=== PATIENT | male | born 1975 | race Hispanic/Latino ===

== ENCOUNTER 2018-10-25 20:45 | Emergency (ER) | payer SELFPAY | END 2018-10-25 21:17 | disposition home or self-care (01) | LOC: NAV ERS 20:45 | DX: R21 Rash and other nonspecific skin eruption (principal); F17.210 Nicotine dependence, cigarettes, uncomplicated | CPT/HCPCS: 99282 ==

== ENCOUNTER 2018-12-09 20:09 | Emergency (ER) | payer SELFPAY ==
[2018-12-09] MEDS ORDERED: methylPREDNISolone Acetate 40 mg/ml Vial ONE (20:22)
== END 2018-12-09 20:51 | disposition home or self-care (01) ==
LOC: NAV ERS 20:09
DX: L23.7 Allergic contact dermatitis due to plants, except food (principal); F17.210 Nicotine dependence, cigarettes, uncomplicated
CPT/HCPCS: 96372; J1030

== ENCOUNTER 2019-09-22 18:47 | Emergency (ER) | payer SELFPAY ==
[2019-09-22] MEDS ORDERED: predniSONE 20 MG TAB ONE (19:22)
== END 2019-09-22 19:25 | disposition home or self-care (01) ==
LOC: NAV ERS 18:47
DX: L50.0 Allergic urticaria (principal); L25.9 Unspecified contact dermatitis, unspecified cause; F17.210 Nicotine dependence, cigarettes, uncomplicated
CPT/HCPCS: 99282; J7512

== ENCOUNTER 2020-07-18 15:25 | Emergency (ER) | payer SELFPAY ==
--- NOTE | 2020-07-18 15:48 | RAD ---
XR Knee Rt 4 View STANDARD History: Injury Comparison: None. Findings: Mild prepatellar soft tissue swelling. Ovoid 1 x 2 mm radiopacity projects over the suprapa tellar soft tissues likely within the superficial soft tissues and may be a small phlebolith versus mild quadriceps calcific tendinosis. No acute displaced fracture or malalignment. Likely old MCL injury at the tibial insertion. Impression: No acute osseous abnormality.
== END 2020-07-18 16:03 | disposition home or self-care (01) ==
LOC: NAV ERS 15:25
DX: M25.561 Pain in right knee (principal); F17.210 Nicotine dependence, cigarettes, uncomplicated; W17.2XXA Fall into hole, initial encounter

== ENCOUNTER 2022-04-26 09:59 | Emergency (ER) | payer SELFPAY ==
[2022-04-26] MEDS ORDERED: Sodium Chloride 0.9% 1,000 ML ONE (10:13)
[2022-04-26] MEDS ORDERED: Ketorolac Tromethamine 30 MG/ML VIAL ONE (10:13)
[2022-04-26 10:50] LABS: #Basophils 0.1 thou/uL (0.0-0.2); #Lymphocytes 1.1 thou/uL (1.20-3.40); #Monocytes 1.2 thou/uL (0.11-0.59); #Neutrophils 14.1 thou/uL (1.40-6.50); %Basophils 0.5 % (0.0-1.0); %Lymphocytes 6.4 % (21.0-51.0); %Monocytes 7.4 % (0.0-10.0); %Neutrophils 85.6 % (42.0-75.0); Hemoglobin 13.7 g/dL (14.0-18.0); Mean Corpuscular HGB CONC 33.9 g/dL (32.0-36.0); Mean Corpuscular Hemoglobin 29.9 pg (27.0-31.0); Mean Corpuscular Volume 88.2 fL (78.0-98.0); Mean Platelet Volume 8.2 fL (7.4-10.4); Platelet Count 259 thou/uL (130-400); RBC Distribution Width 11.6 % (11.5-14.5); Red Blood Cell (RBC) Count 4.59 mill/uL (4.70-6.10); White Blood Cell (WBC) Count 16.4 thou/uL (4.8-10.8)
[2022-04-26 10:57] LABS: ALT (SGPT) 14 U/L (8-55); AST (SGOT) 27 U/L (5-34); Alkaline Phosphatase 71 U/L (40-110); Anion Gap 15 mmol/L (10-20); BUN (Urea Nitrogen) 20 mg/dL (8.9-20.6); Bilirubin, Total 0.8 mg/dL (0.2-1.2); Calc. Creatinine Clearance 0 mL/min (70-130); Calcium 8.6 mg/dL (7.8-10.44); Carbon Dioxide 20 mmol/L (22-29); Chloride 105 mmol/L (98-107); Estimated GFR 87; Globulin 2.8 g/dL (2.4-3.5); Protein, Total 6.8 g/dL (6.0-8.3); Sodium 137 mmol/L (136-145)
[2022-04-26 11:05] LABS: Glucose 134 mg/dL (70-105); Potassium 2.8 mmol/L (3.5-5.1)
[2022-04-26] MEDS ORDERED: Potassium Chloride 20 MEQ TAB ONE (11:14)
[2022-04-26 12:10] LABS: Bilirubin Negative (Negative); Blood, Urine Negative (Negative); Clarity Clear (Clear); Glucose, Urine (Dipstick) Negative (Negative); Ketone, Urine Trace mg/dL (Negative); Leukocyte Negative (Negative); Nitrite Negative (Negative); Protein, Urine (Dipstick) Negative (Neg-Trace); Urobilinogen 0.2 mg/dL (Less than 2); pH, Urine 7.5 (5.0-9.0)
[2022-04-26 12:21] LABS: Amphetamine Detected (NotDetected); Cocaine Metabolite Screen Not Detected (NotDetected); Methamphetamine Detected (NotDetected); Opiate Screen Not Detected (NotDetected); Phencyclidine (PCP) Not Detected (NotDetected); THC/Cannabinoid Screen Detected (NotDetected)
[2022-04-26 12:22] LABS: Barbiturates Screen Not Detected (NotDetected); Benzodiazepine Screen Not Detected (NotDetected); Medtox Control Line Valid? VALID (VALID); Methadone Not Detected (NotDetected); Oxycodone Screen Not Detected (NotDetected); Tricyclic Screen Not Detected (NotDetected)
== END 2022-04-26 12:55 | disposition home or self-care (01) ==
LOC: NAV ERS 09:59
DX: N13.2 Hydronephrosis with renal and ureteral calculous obstruction (principal); F12.10 Cannabis abuse, uncomplicated; F17.210 Nicotine dependence, cigarettes, uncomplicated
CPT/HCPCS: 74176; 80053; 80306; 81003; 85025; 96374; J1885; J7050